=== PATIENT | female | born 1960 | race Caucasian/White ===

== ENCOUNTER 2022-07-25 16:18 | Emergency (ER) | payer BC, OTHER ==
[~2022-07-25] VITALS: Ht 162.6 cm; Wt 65.8 kg
[2022-07-25 16:22] VITALS: BP 126/56
--- NOTE | 2022-07-25 16:32 | NUR ---
PT AMB TO BED 4.
[2022-07-25] MEDS ORDERED: ALBUTEROL 0.083% 2.5 MG/3 ML NEBU INH ONE (17:00)
[2022-07-25] MEDS ORDERED: guaiFENesin 600 MG TABER PO SCH (17:00)
[2022-07-25] MEDS ORDERED: predniSONE 20 MG TAB PO ONE (17:00)
[2022-07-25] MEDS ORDERED: ALBUTEROL SULFATE/IPRATROPIU 3 ML SOL IH ONE (17:00)
[2022-07-25] MEDS ORDERED: PSEUDOEPHEDRINE 30 MG TAB PO ONE (17:00)
--- NOTE | 2022-07-25 17:02 | NUR ---
[facility] THERAPY AND RESPIRATORY DRUGS GIVEN ORDERED
[2022-07-25] MEDS ORDERED: OSELTAMIVIR PHOSPHATE 75 MG CAP PO ONE (18:00)
[2022-07-25] MEDS ORDERED: CEPH-588 PO (18:18)
[2022-07-25] MEDS ORDERED: TAM75 PO (18:20)
[2022-07-25] MEDS ORDERED: cefTRIAXone 500 MG in LIDOCAINE MPF 1% 1 ML IM ONE (18:20)
[2022-07-25] MEDS ORDERED: MUC600 PO (18:20)
[2022-07-25] MEDS ORDERED: ALBU0.0912 IH (18:20)
[2022-07-25] MEDS ORDERED: DEXT118S25 PO (18:20)
[2022-07-25] MEDS ORDERED: PRED20TA5 PO (18:20)
[2022-07-25] MEDS ORDERED: SUD30 PO (18:20)
--- NOTE | 2022-07-25 18:20 | NUR ---
pt a/o times 4, nad, feels better about sob and cough, o2 sat 99% ra, sr up times 2
[2022-07-25] MEDS ORDERED: LIDOCAINE MPF 1% 5 ML ONE (18:23)
[2022-07-25] MEDS ORDERED: cefTRIAXone 500 MG VIAL ONE (18:23)
--- NOTE | 2022-07-25 19:12 | NUR ---
Patient discharged with v/s stable. Written and verbal after care instructions given and explained. Patient verbalized understanding. Ambulatory with steady gait. All questions addressed prior to discharge. Advised to follow up with PMD in 2-3 days. speaking full sentences, o2 sat 99% ra.
[2022-07-25 19:13] VITALS: BP 128/73
== END 2022-07-25 19:12 | disposition home or self-care (01) ==
LOC: MED 16:18
DX: J10.08 Influenza due to other identified influenza virus with other specified pneumonia (principal); Z20.822 Contact with and (suspected) exposure to COVID-19; J18.1 Lobar pneumonia, unspecified organism; J45.901 Unspecified asthma with (acute) exacerbation; R03.0 Elevated blood-pressure reading, without diagnosis of hypertension; R06.02 Shortness of breath; F32.9 Major depressive disorder, single episode, unspecified; F41.9 Anxiety disorder, unspecified; Z88.0 Allergy status to penicillin; Z88.1 Allergy status to other antibiotic agents; Z79.899 Other long term (current) drug therapy; Z98.890 Other specified postprocedural states; Z90.49 Acquired absence of other specified parts of digestive tract; Z90.710 Acquired absence of both cervix and uterus
CPT/HCPCS: 71046; 87426; 87804; 94640; 96372; 99284; J0696; J2001; J7512; J7613